=== PATIENT | female | born 1985 | race Caucasian/White ===

== ENCOUNTER → 2019-11-22 09:56 | Outpatient (BNVA) | payer OTHER, SELFPAY | PROVIDERS: Family Provider Nurse Practitioner; Visit Provider Registered Nurse | DX: G47.33 Obstructive sleep apnea (adult) (pediatric) (principal); M79.7 Fibromyalgia; G60.9 Hereditary and idiopathic neuropathy, unspecified | CPT/HCPCS: 85651; 86140 ==

== ENCOUNTER → 2019-11-29 08:50 | Outpatient (BNVA) | payer OTHER, SELFPAY | PROVIDERS: Family Provider Nurse Practitioner; Visit Provider Registered Nurse | DX: G60.9 Hereditary and idiopathic neuropathy, unspecified (principal) | CPT/HCPCS: 80053; 85025; 86431 ==

== ENCOUNTER → 2020-09-09 08:19 | Outpatient (BNVA) | payer OTHER, SELFPAY | PROVIDERS: Family Provider Nurse Practitioner; Visit Provider Obstetrics & Gynecology | DX: Z12.4 Encounter for screening for malignant neoplasm of cervix (principal); N89.8 Other specified noninflammatory disorders of vagina; N91.2 Amenorrhea, unspecified; N93.8 Other specified abnormal uterine and vaginal bleeding | CPT/HCPCS: 82670; 83001; 84146; 84443; 87210; 88175 ==

== ENCOUNTER → 2020-09-11 14:15 | Outpatient (BNVA) | payer OTHER, SELFPAY | PROVIDERS: Family Provider Nurse Practitioner; Visit Provider Obstetrics & Gynecology | DX: R79.89 Other specified abnormal findings of blood chemistry (principal) | CPT/HCPCS: 81025 ==

== ENCOUNTER 2020-12-16 07:59 | Outpatient (CLI) | payer OTHER, SELFPAY ==
--- NOTE | 2020-12-16 08:07 | MR_ITS ---
WS: [id number] MRI HEAD WITH CONTRAST WITH ATTENTION TO THE PITUITARY TECHNIQUE: Sagittal T1, T2 axial, T2 axial FLAIR, axial susceptibility weighted imaging, axial diffus ion weighted images, and coronal T2 images were obtained. Pre and post-T1 axial and post T1 coronal i mages. ADC and FSPGR images. Pituitary protocol. CLINICAL INFORMATION: G60.9 - Hereditary and idiopathic neuropathy, unspecified COMPARISON: None. FINDINGS: No evidence of restricted diffusion to suggest acute ischemia. Ventricular system and basal cisterns are patent. No suspicious intracranial signal abnormalities. Normal posterior fossa. Normal vascular flow voids at the skull base. No extra-axial fluid collections. No evidence of mass or mass effect. M astoid air cells are well aerated. Retention cyst right maxillary sinus. No hemosiderin on susceptibl y weighted images. Normal optic chiasm and pituitary infundibulum. 2 mm T1 hyperintense lesion along the tuber cinereum. Differential considerations include hypothalamic lipoma versus Ectopic posterior pituitary bright sp ot. Intrasellar contents are normal. Hypoenhancing pituitary tissue in the left posterior aspect of t he sella measuring 1.1 x 0.6 cm. Recommend correlation for microadenoma. Recommend correlation with p ituitary function studies. Incidental slightly low-lying cerebellar tonsils. Normal upper cervical spine. No abnormal intraparen chymal enhancement. MR/MR pituitary wo/w con* [id number] IMPRESSION: 1. Lobulated hypoenhancing pituitary lesion in the left posterior aspect of th e sella measuring 1.1 x 0.6 cm compatible with pituitary microadenoma. This abu ts the left cavernous carotid artery. 2. Tiny hypothalamic lipoma or Congenital ectopic posterior pituitary bright s pot along the tuber cinereum. If ectopic posterior pituitary, this can be assoc iated with growth hormone deficiency or panhypopituitarism. 3. Otherwise normal optic chiasm and pituitary infundibulum. 4. No restricted diffusion to suggest acute ischemia. 5. No suspicious intracranial signal abnormalities. 6. Incidental slightly low-lying cerebellar tonsils. Normal fourth ventricle.
[2020-12-16] MEDS: gadobenate dimeglumine 20 mL vial IV (08:52)
== END 2020-12-16 08:00 | disposition home or self-care (01) ==
PROVIDERS: PCP Registered Nurse; Visit Provider Obstetrics & Gynecology
DX: G60.9 Hereditary and idiopathic neuropathy, unspecified (principal); E23.6 Other disorders of pituitary gland
CPT/HCPCS: 70553; A9577

== ENCOUNTER → 2021-01-08 15:39 | Outpatient (BNVA) | payer OTHER, SELFPAY | PROVIDERS: Referring Provider Obstetrics & Gynecology; Visit Provider Internal Medicine | DX: D35.2 Benign neoplasm of pituitary gland (principal) | CPT/HCPCS: 99204 ==

== ENCOUNTER → 2021-01-17 08:24 | Outpatient (BNVA) | payer OTHER, SELFPAY | PROVIDERS: Visit Provider Internal Medicine | DX: D35.2 Benign neoplasm of pituitary gland (principal) | CPT/HCPCS: 82530; 82533; 82570; 84146; 84439 ==

== ENCOUNTER 2021-06-20 12:49 | Outpatient (CLI) | payer OTHER, SELFPAY ==
--- NOTE | 2021-06-20 12:54 | MR_ITS ---
WS: [id number] MRI BRAIN WITHOUT CONTRAST, ATTENTION DIRECTED TO THE PITUITARY GLAND HISTORY: Follow-up pituitary lesion. COMPARISON: 12/16/2020 TECHNIQUE: Multiple sequences without contrast performed. High-resolution coronal and sagittal imagin g performed through the pituitary region with and without intravenous gadolinium. Pituitary lesion is not as well visualized today without IV contrast. Isointense nodule within the LE FT sella causing very mild bulging of the contour of the pituitary. Superior inferior dimension of 5. 8 cm. This nodule does abut the LEFT cavernous carotid artery. Probably not significantly changed all owing IV contrast. There is no deviation of the infundibulum or optic chiasm. T1 hyperintense 2 mm lesion along the tuber cinereum is reidentified without increase in size. No diffusion-weighted abnormalities. Tellez-white matter differentiation is normal. No edema or infarct . No inferior displacement of the cerebellar tonsils other than the mild cerebellar ectopia which was previously described. No hydrocephalus. MR/MR pituitary wo con [id number] IMPRESSION: 1. Stable LEFT posterior pituitary lesion since 12/16/2020. Please note this st udy was a noncontrast examination which makes direct comparison difficult but t here is no obvious change. 2. Stable T1 bright 2 mm lesion, differential includes hypothalamic lipoma and ectopic pituitary bright spot.
== END 2021-06-20 12:50 | disposition home or self-care (01) ==
LOC: RADSHAW 12:53
PROVIDERS: PCP Registered Nurse; Visit Provider Internal Medicine
DX: D35.2 Benign neoplasm of pituitary gland (principal)
CPT/HCPCS: 70551

== ENCOUNTER 2021-06-25 12:02 | Outpatient (CLI) | payer OTHER, SELFPAY ==
[2021-06-25 12:45] LABS: Cortisol Random 6.13 ug/dL (2.47-19.5)
== END 2021-06-25 12:03 | disposition home or self-care (01) ==
LOC: LAB 12:06
PROVIDERS: PCP Registered Nurse; Visit Provider Internal Medicine
DX: D35.2 Benign neoplasm of pituitary gland (principal)
CPT/HCPCS: 82533; 84146

== ENCOUNTER → 2021-11-13 09:26 | Outpatient (BNVA) | payer OTHER, SELFPAY | PROVIDERS: PCP Registered Nurse; Visit Provider Family Medicine | DX: Z20.828 Contact with and (suspected) exposure to other viral communicable diseases (principal) | CPT/HCPCS: 87635 ==

== ENCOUNTER 2021-11-20 11:53 | Outpatient (CLI) | payer OTHER, SELFPAY ==
[2021-11-20 12:39] LABS: Prolactin 26.14 ng/mL (4.8-23.3)
== END 2021-11-20 11:54 | disposition home or self-care (01) ==
PROVIDERS: PCP Registered Nurse; Visit Provider Internal Medicine
DX: D35.2 Benign neoplasm of pituitary gland (principal)
CPT/HCPCS: 84146

== ENCOUNTER 2022-01-31 16:42 | Emergency (ER) | payer OTHER, SELFPAY ==
[2022-01-31 16:47] VITALS: BP 141/82; PULSE 89; RESP 18; TEMP 36.7; O2SAT 97; BMI 32.5
--- NOTE | 2022-01-31 16:55 | ED_ITS ---
HPI - General Adult General: Chief complaint: Needlestick/Injury/Exposure Stated complaint: Needle Stick Time Seen by Provider: 01/31/22 16:52 History of Present Illness: Patient has needlestick to the right thigh. Patient was just done and IV/blood work on the patient here in the ER and needle dropped and grazed her right thigh. Patient declines any medication. Review of Systems Narrative: Needlestick [facility] work comp Skin/Breast: Reports: other (Needlestick right thigh.) PFSH ED PFSH: Medical History Anxiety Bronchitis Depression Idiopathic polyneuropathy Pharyngitis Prolactinoma 09/09/20: Presented with amenorrhea. Prolactin 92 with TSH 0.90 12/16/20: Pituitary MRI showed 1.1 cm pituitary mass (c/w microadenoma). 12/18/20: started cabergoline Sleep apnea Uses C-pap Surgical History No pertinent past surgical history Family History Grandfather Diabetes paternal Father Hypertension Social History Smoking and tobacco status: current every day smoker cigarettes Packs smoked per day: 0.5 Years cigarettes smoked: 20 Alcohol intake: current Alcohol intake frequency: holidays/special occasions only Physical Exam Const: COMMON NORMALS: no acute distress Course Vital Signs: Vital signs: Vital Signs Temperature 98.0 F 01/31/22 16:47 Pulse Rate 89 01/31/22 16:47 Respiratory Rate 18 01/31/22 16:47 Blood Pressure 141/82 01/31/22 16:47 Pulse Oximetry 97 01/31/22 16:47 MDM - General Adult Medical Decision Making Patient has needlestick injury to right thigh. Patient declines follow-up medications. Laboratory studies were done. Discharge Plan Discharge Condition: Stable Prescriptions: No Action cabergoline 0.5 mg tablet 0.25 mg PO .Twice a week Qty: 4 12RF Referrals: Maxine Gilliam FNP [Primary Care Provider] - Coding Level of Care Code ED Deaf And Hard Of Hearing Teacher for Madie Billings
[2022-01-31 18:05] LABS: Basophils # 0.1 10^3/uL (0.0-0.1); Basophils % 0.8 %; Eosinophils # 0.6 10^3/uL (0.0-0.8); Eosinophils % 4.5 %; Hematocrit 40.1 % (37.0-47.0); Lymphocytes # 3.2 10^3/uL (0.8-4.8); Lymphocytes % 25.9 %; Mean Corpuscular HGB Conc 32.4 g/dL (30.0-36.0); Mean Corpuscular Hemoglobin 29.1 pg (28.0-34.0); Mean Corpuscular Volume 89.7 fl (81-99); Monocytes # 0.7 10^3/uL (0.2-0.9); Monocytes % 5.6 %; Neutrophils # 7.78 10^3/uL (1.8-7.7); Neutrophils % 62.7 %; Nucleated Red Blood Cells % 0 %; Platelet Count 378 10^3/cmm (130-400); Red Blood Count 4.47 10^6/uL (4.1-5.3); Red Cell Distribution Width 13.6 % (12.1-15.1); White Blood Count 12.4 10^3/uL (4.0-10.0)
[2022-01-31 18:09] LABS: Alanine Aminotransferase 12 U/L (0-33); Albumin Level 4.3 g/dL (3.5-5.2); Alkaline Phosphatase 87 IU/L (35-105); Anion Gap 16.8 (5-19); Aspartate Amino Transferase 14 U/L (0-32); Blood Urea Nitrogen 12 mg/dL (6-20); Calcium 9.8 mg/dL (8.5-10.5); Carbon Dioxide 23 mmol/L (22-29); Chloride 100 mmol/L (98-107); Globulin 2.9 g/dL (1.3-4.6); Glomerular Filtration Rate 81.6 mL/min (90-130); Glucose 96 mg/dL (65-115); Osmolality Calculated 282 mOsm/kg (285-295); Potassium 3.8 mmol/L (3.5-5.1); Sodium 136 mmol/L (136-145); Total Bilirubin 0.6 mg/dL (0.15-1.2); Total Protein 7.2 g/dL (6.6-8.7)
[2022-01-31 18:14] LABS: Hepatitis B Surface Antigen Non-Reactive (Nonreactive)
[2022-01-31 18:25] LABS: HIV 1 & 2 Antibody Non-Reactive (Non-Reactiv); HIV 1 & 2 Antigen Non-Reactive (Non-Reactiv)
[2022-01-31 19:55] LABS: Hepatitis B Core IgM Non-Reactive (Nonreactive); Hepatitis C Virus Antibody Non-Reactive (Nonreactive)
== END 2022-01-31 17:35 | disposition home or self-care (01) ==
LOC: ER 17:08
PROVIDERS: Nurse Practitioner Family; Emergency Provider Family Medicine; PCP Registered Nurse
DX: S71.141A Puncture wound with foreign body, right thigh, initial encounter (principal); W46.0XXA Contact with hypodermic needle, initial encounter; F17.210 Nicotine dependence, cigarettes, uncomplicated
CPT/HCPCS: 80053; 80074; 85025; 87806; 99283

== ENCOUNTER 2022-06-01 14:10 | Outpatient (CLI) | payer OTHER, SELFPAY ==
--- NOTE | 2022-06-01 14:30 | MR_ITS ---
WS: [id number] MRI HEAD WITHOUT AND WITH CONTRAST WITH PITUITARY PROTOCOL. TECHNIQUE: Sagittal T1, T2 axial, T2 axial FLAIR, axial susceptibility weighted imaging, axial diffus ion weighted images, and coronal T2 images were obtained. Pre and post-T1 axial and post T1 coronal i mages. ADC and FSPGR images. High-resolution pituitary protocol with dynamic high-resolution contrast examination CLINICAL INFORMATION: Check for changes. with pituitary protocol COMPARISON: FINDINGS: Hypoenhancing pituitary microadenoma unchanged since the prior examinations. This is better demonstrated today on the dynamic pituitary protocol measuring 6.0 x 3.5 x 3.[address] sm and pituitary infundibulum. Stable tiny hypothalamic lipoma or congenital ectopic posterior pituit sarah bright spot is unchanged. No evidence of restricted diffusion to suggest acute ischemia. Ventricular system and basal cisterns are patent. Normal posterior fossa. Normal vascular flow voids at the skull base. No extra axial flui d collections. No evidence of mass or mass effect. Mild mucosal thickening in the paranasal sinuses. Mastoid air cells well aerated. Retention cyst RIGHT maxillary sinus measuring 2.7 x 1.8 cm. No hemos iderin on susceptibly weighted images. Normal cavernous sinuses and Meckel's cave. Stable cerebellar tonsillar ectopia. MR/MR pituitary wo/w con* [id number] IMPRESSION: 1. Stable hypoenhancing pituitary lesion in the LEFT posterior aspect of the p ituitary better delineated today on the dynamic protocol measuring 6 x 3.5 x 3. 5 mm compatible with microadenoma unchanged compared to prior examinations. 2. Stable tiny hypothalamic lipoma or congenital ectopic posterior pituitary b right spot unchanged. 3. No other significant changes compared to prior examinations. 4. No other suspicious intracranial signal abnormalities.
== END 2022-06-01 14:11 | disposition home or self-care (01) ==
PROVIDERS: PCP Registered Nurse; Visit Provider Internal Medicine
DX: D35.2 Benign neoplasm of pituitary gland (principal)
CPT/HCPCS: 70553; A9577

== ENCOUNTER 2022-07-13 13:57 | Outpatient (CLI) | payer OTHER, SELFPAY ==
[2022-07-13 14:51] LABS: Prolactin 23.48 ng/mL (4.8-23.3)
[2022-07-19 13:43] LABS: IGF1 LC/MS 154 ng/mL (53-331); Z Score (Female) 0.2 SD (-2.0 - +2.0)
== END 2022-07-13 13:58 | disposition home or self-care (01) ==
LOC: LAB 14:00
PROVIDERS: PCP Registered Nurse; Visit Provider Internal Medicine
DX: D35.2 Benign neoplasm of pituitary gland (principal)
CPT/HCPCS: 36415; 84146; 84305

== ENCOUNTER → 2022-10-20 16:00 | Outpatient (BNVA) | payer OTHER, SELFPAY | PROVIDERS: PCP Registered Nurse; Visit Provider Internal Medicine | DX: D35.2 Benign neoplasm of pituitary gland (principal) | CPT/HCPCS: 36415; 84146 ==

== ENCOUNTER 2023-01-26 10:09 | Outpatient (CLI) | payer OTHER, SELFPAY ==
[2023-01-26 11:04] LABS: Prolactin 8.32 ng/mL (4.8-23.3)
== END 2023-01-26 10:10 | disposition home or self-care (01) ==
LOC: LAB 10:13
PROVIDERS: PCP Registered Nurse; Visit Provider Internal Medicine
DX: D35.2 Benign neoplasm of pituitary gland (principal)
CPT/HCPCS: 36415; 84146

== ENCOUNTER → 2023-06-21 12:15 | Outpatient (BNVA) | payer OTHER, SELFPAY | PROVIDERS: PCP Registered Nurse; Visit Provider Emergency Medicine | DX: R30.0 Dysuria (principal); N10 Acute pyelonephritis | CPT/HCPCS: 81000 ==

== ENCOUNTER → 2023-12-15 09:10 | Outpatient (BNVA) | payer OTHER, SELFPAY | PROVIDERS: PCP Registered Nurse; Visit Provider Family Medicine | DX: D35.2 Benign neoplasm of pituitary gland (principal) | CPT/HCPCS: 80053; 84146; 84439; 84443; 85025 ==

== ENCOUNTER → 2024-03-02 08:10 | Outpatient (BNVA) | payer OTHER, SELFPAY | PROVIDERS: PCP Family Medicine; Visit Provider Family Medicine | DX: D35.2 Benign neoplasm of pituitary gland (principal); F41.9 Anxiety disorder, unspecified; F17.200 Nicotine dependence, unspecified, uncomplicated; Z71.6 Tobacco abuse counseling; G47.30 Sleep apnea, unspecified; F10.90 Alcohol use, unspecified, uncomplicated | CPT/HCPCS: 84146 ==

== ENCOUNTER 2025-06-11 15:17 | Observation (INO) | payer OTHER, SELFPAY ==
[2025-06-11] VITALS (23 sets, daily range): BP systolic 124–159; BP diastolic 76–108; PULSE 67–90; RESP 15; TEMP 36.6–36.9; O2SAT 94–100; BMI 36.7
--- OUTSIDE RECORDS SUMMARY | 2025-06-11 15:22 | XMS_ITS | Clinical Summary ---
Author Organization [facility] Address [address] [place] [address] Care Team Providers Care Laboratory Geneticist Name Role Phone Therese Frye [facility] Primary Care Provi dalia Allergies No known active allergies Medications medroxyPROGESTE Nancy Mcdonald, (DEPO-PROVERA) 150 mg/mL SyringeIndicati ons:URI (upper respiratory infection) Inject 150 mg by intramuscular injection one time only. Active Active Problems No known active problems Social History Tobacco Use Types Packs/Day Years Used Date Smoking Tobacco: Former Cigarettes Smokeless Tobacco: Never Comments:since age 16 Alcohol Use Standard Drinks/Week Comments No 0 (1 standard drink = 0.6 oz pur e alcohol) rarely Comments No Sex and Gender Information Value Date Recorded Sex Assigned at Not on file Legal Sex Female 4:21 AM COPYMAN Gender Identity Not on file Sexual Orientation Not on file Last Filed Vital Signs Vital Sign Reading Time Taken Comments Blood Pressure 104/88 03/15/2015 11:20 AM CDT Pulse 68 05/22/2014 11:19 AM CDT Temperature 36.9 C (98.5 F) 03/15/2015 9:38 AM CDT Respiratory Rate 20 03/15/2015 11:20 AM CDT Oxygen Saturation 97% 03/15/2015 11:20 AM CDT Inhaled Oxygen Concentration - - Weight 81.6 kg (180 lb) 03/15/2015 9:38 AM CDT Height 160 cm (5' 3 ) 03/15/2015 9:38 AM CDT Body Mass Index 31.89 03/15/2015 9:38 AM CDT Plan of Treatment Health Maintenance Due Date Last Done Comments DTAP/TDAP/TD VACCINES (1 - Tdap) 2005 HEPATITIS B VACCINES (1 of 3 - 19+ 3-dose series) 05/04 HPV/Cotest (21-29) 2007 HPV VACCINES (1 - 3-dose SCDM series) 2013 CERVICAL CANCER SCREENING 2016 HPV/Cotest (30-65) 2016 PAP SMEAR 2016 11/15/2009 INFLUENZA VACCINE (#1) 2025 Procedures Procedure Name Priority Date/Time Associated Diagnosis Comments CERV/VAG CYTOPATH, THIN PREP DRUG DEPARTMENT WORKER Routine 11/15/2009 from Last 3 Months or Most Recently Relevant to Health Maintenance Results * CERV/VAG CYTOPATH, THIN PREP DRUG DEPARTMENT WORKER (11/15/2009) Endocervical us Rebecca Reynolds MD PATHOLOGY/CYTOLOGY ORDERABL ES Final Result Performing Organization Address City/State/[facility] Co de Phone Number [facility] CLIA# [id number] [address] [place] [address] from Last 3 Months or Most Recently Relevant to Health Maintenance Insurance [facility] INSURANCE [facility] Care Teams Laboratory Geneticist Relationship Specialty Start Date End Date Therese Frye FNP PCP - General NURSE PRACTITIONER 01/29/14
--- OUTSIDE RECORDS SUMMARY | 2025-06-11 15:22 | XMS_ITS | Encounter Summary ---
Author Organization [facility] Address [address] [place] [address] Care Team Providers Care Motor Coach Chauffeur Name Role Phone Therese Frye Primary Care Provi dalia Encounter Details Date Type Department Care Team (Latest Contact Info) Description 02/15/2002 Outpatient Historical [facility]- [address] [place] [address] Rebecca Reynolds MD NO ADDRESS ON FILE ACUTE SINUSITIS NOS (Primary Dx); JOINT PAIN-ANKLE Social History Tobacco Use Types Packs/Day Years Used Date Smoking Tobacco: Never Assessed Comments Unknown Sex and Gender Information Value Date Recorded Sex Assigned at Not on file Legal Sex Female 4:21 AM MANDARIN CHINESE TEACHER Gender Identity Not on file Sexual Orientation Not on file documented as of this encounter Plan of Treatment Not on file documented as of this encounter Visit Diagnoses Diagnosis Acute sinusitis, unspecified- Primary Pain in joint, ankle and foot documented in this encounter Care Teams Motor Coach Chauffeur Relationship Specialty Start Date End Date Therese Frye FNP PCP - General NURSE PRACTITIONER 01/29/14 documented as of this encounter
--- OUTSIDE RECORDS SUMMARY | 2025-06-11 15:22 | XMS_ITS | Encounter Summary ---
Author Organization [facility] Address [address] [place] [address] Care Team Providers Care Delivery Supervisor Name Role Phone Therese Frye NAVAL INSPECTOR Primary Care Provi dalia Encounter Details Date Type Department Care Team (Late st Contact Info) Description 01/29/2014 Ancillary Orders [facility] Admitting [address] [place] [address] Therese Frye FNP [address] [place] [address] Wrist pain, right (Primary Dx) Social History Tobacco Use Types Packs/Day Years Used Date Smoking Tobacco: Every Day Cigarettes Comments:since age 16 Alcohol Use Standard Drinks/Week Comments Not Asked 0 (1 standard drink = 0.6 oz pur e alcohol) rarely Comments No Sex and Gender Information Value Date Recorded Sex Assigned at Not on file Legal Sex Female 4:21 AM DIRECTOR CORPORATE Gender Identity Not on file Sexual Orientation Not on file documented as of this encounter Plan of Treatment Not on file documented as of this encounter Results * XR WRIST 3+ VW RIGHT (01/29/2014 2:21 PM CDT) Anatomical Region Laterality Modality Wrist / Hand Computed Radiogr aphy 01/29/2014 2:18 PM CDT Narrative 01/29/2014 5:17 PM CDT PROCEDURE XR RIGHT WRIST, three views 29 January 2014 DESCRIPTION PA, oblique, and lateral views of the right wrist show no acute fracture, dislocation, or deformity. IMPRESSION normal right wrist views Procedure Note Manny Chavira MD - 01/29/2014 PROCEDURE XR RIGHT WRIST, three views 29 January 2014 DESCRIPTION PA, oblique, and lateral views of the right wrist show no acute fracture, dislocation, or deformity. IMPRESSION normal right wrist views us Therese [facility] ORDERABLES Final Result documented in this encounter Visit Diagnoses Diagnosis Wrist pain, right Pain in joint, forearm Wrist pain, right- Primary Pain in joint, forearm documented in this encounter Care Teams Delivery Supervisor Relationship Specialty Start Date End Date Therese Frye FNP PCP - General NURSE PRACTITIONER 01/29/14 documented as of this encounter
--- OUTSIDE RECORDS SUMMARY | 2025-06-11 15:22 | XMS_ITS | Encounter Summary ---
Author Organization [facility] Address [address] [place] [address] Care Team Providers Care Garnett Mechanic Name Role Phone Therese Frye Primary Care Provi dalia Encounter Details Date Type Department Care Team (Late st Contact Info) Description 01/29/2014 Ancillary Orders [facility] Admitting [address] [place] [address] Therese Frye FNP [address] [place] [address] Wrist pain, right (Primary Dx) Social History Tobacco Use Types Packs/Day Years Used Date Smoking Tobacco: Every Day Cigarettes Comments:since age 16 Alcohol Use Standard Drinks/Week Comments Not Asked 0 (1 standard drink = 0.6 oz pur e alcohol) rarely Comments No Sex and Gender Information Value Date Recorded Sex Assigned at Not on file Legal Sex Female 4:21 AM MANAGER TRANSIT Gender Identity Not on file Sexual Orientation Not on file documented as of this encounter Plan of Treatment Not on file documented as of this encounter Visit Diagnoses Diagnosis Wrist pain, right- Primary Pain in joint, forearm documented in this encounter Care Teams Garnett Mechanic Relationship Specialty Start Date End Date Therese Frye FNP PCP - General NURSE PRACTITIONER 01/29/14 documented as of this encounter
--- OUTSIDE RECORDS SUMMARY | 2025-06-11 15:22 | XMS_ITS | Clinical Summary ---
Author Organization [facility] Address [address] Yun: Epic Prelude ADT [place] [address] Care Team Providers Care Nuclear Equipment Research Engineer Name Role Phone Therese Frye [facility] Primary Care Provi dalia Allergies No known active allergies Social History Tobacco Use Types Packs/Day Years Used Date Smoking Tobacco: Former Cigarettes Smokeless Tobacco: Never Comments:Quit smoking: since age 16 Alcohol Use Standard Drinks/Week Comments No 0 (1 standard drink = 0.6 oz pur e alcohol) Comments Unknown Sex and Gender Information Value Date Recorded Sex Assigned at Not on file Legal Sex Female 1:25 PM FREELANCE PROGRAMMER/APP DEVELOPER Gender Identity Not on file Sexual Orientation Not on file Last Filed Vital Signs Vital Sign Reading Time Taken Comments Blood Pressure 104/88 03/15/2015 11:20 AM CDT Pulse - - Temperature 36.9 C (98.5 F) 03/15/2015 9:38 AM CDT Respiratory Rate 20 03/15/2015 11:20 AM CDT Oxygen Saturation - - Inhaled Oxygen Concentration - - Weight 81.6 [...] 2016 HPV/Cotest (30-65) 2016 PAP SMEAR 2016 INFLUENZA VACCINE (#1) 2025 Care Teams Nuclear Equipment Research Engineer Relationship Specialty Start Date End Date Therese Frye FNP [address] [place] [address] PCP - General NURSE PRACTITIONER 01/29/14
--- OUTSIDE RECORDS SUMMARY | 2025-06-11 15:22 | XMS_ITS | Encounter Summary ---
Author Organization [facility] Address [address] [place] [address] Care Team Providers Care Contract Driver Name Role Phone Therese Frye Primary Care Provi dalia Encounter Details Date Type Department Care Team (Latest Contact Info) Description 02/24/[address] [facility] Family Medicine- [address] [place] [address] Rebecca Reynolds MD NO ADDRESS ON FILE SPRAIN OF ANKLE NOS (Primary Dx) Social History Tobacco Use Types Packs/Day Years Used Date Smoking Tobacco: Never Assessed Comments Unknown Sex and Gender Information Value Date Recorded Sex Assigned at Not on file Legal Sex Female 4:21 AM HEALTHCARE ADMINISTRATIVE ASSISTANT Gender Identity Not on file Sexual Orientation Not on file documented as of this encounter Plan of Treatment Not on file documented as of this encounter Visit Diagnoses Diagnosis Sprain of ankle, unspecified site- Primary documented in this encounter Care Teams Contract Driver Relationship Specialty Start Date End Date Therese Frye FNP PCP - General NURSE PRACTITIONER 01/29/14 documented as of this encounter
--- OUTSIDE RECORDS SUMMARY | 2025-06-11 15:22 | XMS_ITS | Encounter Summary ---
Author Organization [facility] Address [address] [place] [address] Care Team Providers Care Equipment Inspector Name Role Phone Therese Frye Primary Care Provi dalia Encounter Details Date Type Department Care Team (Latest Contact Info) Description 08/06/1999 Outpatient Historical [facility] Kimmie Cristina MD [address] [place] [id number] Oral aphthae (Primary Dx) Social History Tobacco Use Types Packs/Day Years Used Date Smoking Tobacco: Never Assessed Comments Unknown Sex and Gender Information Value Date Recorded Sex Assigned at Not on file Legal Sex Female 4:21 AM LOSS PREVENTION SPECIALIST Gender Identity Not on file Sexual Orientation Not on file documented as of this encounter Plan of Treatment Not on file documented as of this encounter Visit Diagnoses Diagnosis Oral aphthae- Primary documented in this encounter Care Teams Equipment Inspector Relationship Specialty Start Date End Date Therese Frye FNP PCP - General NURSE PRACTITIONER 01/29/14 documented as of this encounter
--- NOTE | 2025-06-11 15:25 | CTR_ITS ---
PROCEDURE INFORMATION: Exam: CT Head Without Contrast Exam date and time: 06/11/2025 3:29 PM Age: 40 years old Clinical indication: Stroke-like symptoms; Dizziness/giddiness; Right upper extremity numbness/paresthesia; Additional info: Symptoms of acute stroke TECHNIQUE: Imaging protocol: Computed tomography of the head without contrast. Radiation optimization: All CT scans at this facility use at least one of these dose optimization techniques: automated exposure control; mA and/or kV adjustment per patient size (includes targeted exams where dose is matched to clinical indication); or iterative reconstruction. Other technique: STROKE PROTOCOL was implemented. COMPARISON: MR pituitary wo/w con* [id number] 06/01/2022 2:29 PM RADIATION DOSE METRICS: Total DLP (mGy-cm): 1041.98 FINDINGS: Brain: No midline shift. Ventricles, cisterns, and sulci are normal. No mass, acute infarct, hemorrhage, or extraaxial fluid collection. Cerebral ventricles: No ventriculomegaly. Paranasal sinuses: Visualized sinuses are unremarkable. No fluid levels. Mastoid air cells: Visualized mastoid air cells are well aerated. Bones: Unremarkable. No acute fracture. Soft tissues: Unremarkable. CT/CT head thrombolytic [id number] IMPRESSION: No acute intracranial abnormality. ASSESSMENT: ASPECTS ([place] Stroke Program Early CT Score) is 10.
--- NOTE | 2025-06-11 15:39 | W.ED.NEUROSD ---
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 She says she suddenly developed an aura or of blurriness of her vision in her right eye in the periphery to the right. She also has numbness down the side of her face. She can feel touch but she says it feels numb and tingly. Also in her right arm. She has no motor deficits and no strength deficits. No facial droop. No slurred speech. No headache. No history of migraines or other types of headaches. She says her blood pressure was elevated when they had her check in the ICU and she says it is not normally elevated at all. No fever. No cough. No chest pain. No abdominal pain. Related Data Previous Rx's ?Medication ?Instructions ?Recorded cabergoline 0.5 mg tablet 0.25 mg (1/2 x 0.5 mg) PO .Twice a 12/15/23 week #26 tabs doxycycline hyclate 100 mg tablet 100 mg PO BID #14 tabs 08/08/24 promethazine-DM 6.25 mg-15 mg/5 mL 5 ml PO Q6H PRN cough #118 mL 08/08/24 oral syrup fluoxetine 20 mg tablet 20 mg PO DAILY #90 tabs 08/10/24 Allergies Allergy/AdvReac Type Severity Reaction Status Date / Time No Known Allergies Allergy Verified 06/11/25 15:30 Review of Systems Narrative: Constitutional symptoms: Negative except as documented in HPI. Skin symptoms: Negative except as documented in HPI. Eye symptoms: Negative except as documented in HPI. ENMT symptoms: Negative except as documented in HPI. Respiratory symptoms: Negative except as documented in HPI. Cardiovascular symptoms: Negative except as documented in HPI. Gastrointestinal symptoms: Negative except as documented in HPI. Genitourinary symptoms: Negative except as documented in HPI. Musculoskeletal symptoms: Negative except as documented in HPI. Neurologic symptoms: Negative except as documented in HPI. Psychiatric symptoms: Negative except as documented in HPI. Endocrine symptoms: Negative except as documented in HPI. PFS ED PFSH: Medical History (Updated 06/11/25 @ 18:12 by Dinorah Corey MD) Alcohol use disorder Tobacco use disorder Prolactinoma 09/09/20: Presented with amenorrhea. Prolactin 92 with TSH 0.90 12/16/20: Pituitary MRI showed 1.1 cm pituitary mass (c/w microadenoma). 12/18/20: started cabergoline Bronchitis Pharyngitis Anxiety Sleep apnea Uses C-pap Depression Idiopathic polyneuropathy Surgical History No pertinent past surgical history Family History Grandfather Diabetes paternal Father Hypertension Social History Smoking and tobacco/nicotine status: current every day tobacco/nicotine user e-cigarettes E-Cigarette Details: with nicotine Alcohol intake: current Alcohol intake frequency: 3 or more drinks per day Substance/Drug Use: never Adopted: No Caregiver/support person: No Lives independently: No Household members: spouse Marital status: service: No Current occupational status: employed Sexually active: Yes Do you think of yourself as: Straight/Heterosexual Current gender identity: Female Female Reproductive History: Para: 2 Physical Exam Narrative: EXAM NARRATIVE: General: Alert, no acute distress. Skin: Warm, dry. Head: Normocephalic, atraumatic. Neck: Supple, trachea midline. Eye: Extraocular movements are intact. Ears, nose, mouth and throat: mucosa moist. Cardiovascular: Regular, Normal peripheral perfusion. Respiratory: Lungs are clear to auscultation, respirations are non-labored, breath sounds are equal, Symmetrical chest wall expansion. Gastrointestinal: Soft, Nontender, Non distended Musculoskeletal: Normal ROM, no deformity. Neurological: Alert and oriented, No focal motor deficit observed. She says she feels tingly and numb over her right face and right arm but she does not have any sensory deficit. No facial droop. She reports a blurriness of her right periphery. Psychiatric: Cooperative, appropriate mood & affect. Course Vital Signs: Vital signs: Vital Signs Temperature 97.9 F 06/11/25 15:25 Pulse Rate 70 06/11/25 18:00 Respiratory Rate 15 06/11/25 15:30 Blood Pressure 145/99 06/11/25 18:00 Pulse Oximetry 97 06/11/25 18:00 Oxygen Delivery Me thod Room Air 06/11/25 18:00 MDM - Neuro Symptoms/Deficit Medical Decision Making Medical decision making: Differential diagnosis for patient with focal neurologic deficit(s) includes but not limited to and based on the above HPI, review of systems and physical exam: ischemic stroke, hemorrhagic stroke and embolic stroke secondary to atrial fibrillation), TIA, Monteiro's palsey, metabolic encephalopathy with previous stroke. 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 1520: Patient check and in triage. 1530: Stroke was called from triage 1532 I examined the patient in the CT scanner [address] Cadet on the phone about the patient and she is coming to see her. 1540 NIH Stroke Scale/Score (NIHSS) from [employer] on 06/11/2025 All calculations should be rechecked by clinician prior to use RESULT SUMMARY: 2 points NIH Stroke Scale Still using NIHSS for all strokes? Don't miss a posterior one without HINTS! INPUTS: 1A: Level of consciousness ?> 0 = Alert; keenly responsive 1B: Ask month and age ?> 0 = Both questions right 1C: 'Blink eyes' & 'squeeze hands' ?> 0 = Performs both tasks 2: Horizontal extraocular movements ?> 0 = Normal 3: Visual waldron ?> 1 = Partial hemianopia 4: Facial palsy ?> 0 = Normal symmetry 5A: Left arm motor drift ?> 0 = No drift for 10 seconds 5B: Right arm motor drift ?> 0 = No drift for 10 seconds 6A: Left leg motor drift ?> 0 = No drift for 5 seconds 6B: Right leg motor drift ?> 0 = No drift for 5 seconds 7: Limb Ataxia ?> 0 = No ataxia 8: Sensation ?> 1 = Mild-moderate loss: less sharp/more dull 9: Language/aphasia ?> 0 = Normal; no aphasia 10: Dysarthria ?> 0 = Normal 11: Extinction/inattention ?> 0 = No abnormality CT head: No acute intracranial process. no intracranial hemorrhage, no evidence of infarct. no evidence of acute fracture.This was reviewed and interpreted by myself the ER physician. Consultation: I spoke with Dr. Cadet who examined the patient here in the emergency room. Given the history of pituitary tumor and the odd symptoms she recommends MRI/MRA. She does not recommend TNKase at this time. Lab Review: Laboratory results were reviewed and interpreted by myself the emergency room physician. No leukocytosis, no anemia, no renal insufficiency. MRI/MRA of the brain: No acute process. This was reviewed and interpreted by myself the emergency room physician. I also reviewed the radiology report. I reviewed the patient's medical record. Reexamination: Patient has had very little change in her neurologic symptoms. Nursing staff that was in the room feel that she has a little bit more slurred speech than she had initially secondary to the paresthesia on the right side of her face. Vital signs have improved but she is still slightly hypertensive with blood pressure 145/99. No increased work of breathing. No altered mental status. Consultation: I spoke again with Dr. aCdet and we are going to try some valproic acid for possible migraine. Also, check the prolactin level with her history of pituitary adenoma. She recommends observation overnight. Consultation: I spoke Dr. Elder who is on-call for the hospital service who agrees to admission. Assessment and plan: Paresthesia/neurologic symptoms Hypertension History of pituitary adenoma ?IV Zofran and IV valproic acid in the emergency room -I discussed the patient with the hospitalist on-call who is admitting the patient. - Discussed findings and plan with patient. Answered any questions. - All laboratory values were reviewed and interpreted personally by myself, the ER physician - All imaging was reviewed and interpreted personally by myself, the ER physician. - Evaluation and treatment of this problem were appropriate in the emergency setting Lab Data 06/11/25 15:39 06/11/25 15:[address] 06/11/25 15:25 IMPRESSION: No acute intracranial abnormality. ASSESSMENT: ASPECTS ([place] Stroke Program Early CT Score) is 10. ADDENDUM: 06/11/25 1544 THIS REPORT CONTAINS FINDINGS THAT MAY BE CRITICAL TO PATIENT CARE. The findings were verbally communicated via telephone conference with DINORAH COREY at 3:42 PM CDT on 06/11/2025. The findings were acknowledged and understood. Head MRA 06/11/25 15:44 IMPRESSION: No stenosis or occlusion. Laboratory Results WBC 10.57 10^3/uL (3.29-11.43) 06/11/25 15:39 RBC 4.69 10^6/uL (3.85-5.65) 06/11/25 15:39 Hgb 13.40 g/dL (11.27-16.99) 06/11/25 15:39 Hct 41.6 % (36-47) 06/11/25 15:39 MCV 88.7 fl (85-98) 06/11/25 15:39 MCH 28.6 pg (27-33) 06/11/25 15:39 MCHC 32.2 g/dL (30-55) 06/11/25 15:39 RDW 13.5 % (12.1-15.1) 06/11/25 15:39 Plt Count 321 10^3/cmm (157-399) 06/11/25 15:39 MPV 9.9 fL (7.4-10.4) 06/11/25 15:39 Neut % (Auto) 55.7 % 06/11/25 15:39 Lymph % (Auto) 34.5 % 06/11/25 15:39 Weston % (Auto) 6.3 % 06/11/25 15:39 Eos % (Auto) 2.6 % 06/11/25 15:39 Baso % (Auto) 0.5 % 06/11/25 15:39 Neut # (Auto) 5.88 10^3/uL (1.8-7.7) 06/11/25 15:39 Lymph # (Auto) 3.7 10^3/uL (0.8-4.8) 06/11/25 15:39 Weston # (Auto) 0.7 10^3/uL (0.2-0.9) 06/11/25 15:39 Eos # (Auto) 0.3 10^3/uL (0.0-0.8) 06/11/25 15:39 Baso # (Auto) 0.1 10^3/uL (0.0-0.1) 06/11/25 15:39 Nucleated RBC % (auto) 0 % 06/11/25 15:39 Nucleated RBCs # 0.0 /100WBC 06/11/25 15:39 PT 12.90 SECONDS (12.1-14.9) 06/11/25 15:39 INR 0.91 (0.8-1.2) 06/11/25 15:39 APTT 28.5 SECONDS (23.9-36.7) 06/11/25 15:39 Sodium 135 mmol/L (136-145) L 06/11/25 15:39 Potassium 3.5 mmol/L (3.5-5.1) 06/11/25 15:39 Chloride 99 mmol/L (98-107) 06/11/25 15:39 Carbon Dioxide 25 mmol/L (22-29) 06/11/25 15:39 Anion Gap 14.5 (5-19) 06/11/25 15:39 BUN 11 mg/dL (6-20) 06/11/25 15:39 Creatinine 0.8 mg/dL (0.5-0.9) 06/11/25 15:39 GFR Calculation 79.9 mL/min (90-130) L 06/11/25 15:39 Glucose 93 mg/dL (65-115) 06/11/25 15:39 POC Glucose 90 mg/dL (70-110) 06/11/25 15:38 Calculated Osmolality 279 mOsm/kg (285-295) L 06/11/25 15:39 Calcium 9.1 mg/dL (8.5-10.5) 06/11/25 15:39 Total Bilirubin 0.9 mg/dL (0.15-1.2) 06/11/25 15:39 AST 12 U/L (0-32) 06/11/25 15:39 ALT 10 U/L (0-33) 06/11/25 15:39 Alkaline Phosphatase 93 U/L (35-105) 06/11/25 15:39 Total Protein 7.8 g/dL (6.6-8.7) 06/11/25 15:39 Albumin 4.3 g/dL (3.5-5.2) 06/11/25 15:39 Globulin 3.5 g/dL (1.3-4.6) 06/11/25 15:39 All radiology interpretation(s) finalized by discharge Discharge Plan Discharge Patient Disposition: Placed in Observation Clinical Impression: Neurological symptoms, Hypertension, Pituitary adenoma Coding Level of Care Code ED Equal Opportunity Assistant for Madie Billings
--- NOTE | 2025-06-11 15:44 | MRR_ITS ---
PROCEDURE INFORMATION: Exam: MR Head Without Contrast Exam date and time: 06/11/2025 4:45 PM Age: 40 years old Clinical indication: Numbness / parasthesia; Additional info: Stroke symptoms TECHNIQUE: Imaging protocol: Magnetic resonance imaging of the head without contrast. COMPARISON: MR angio head wo con [id number] 06/11/2025 4:36 PM FINDINGS: Brain: No abnormal signal intensity to indicate intracranial hemorrhage or hematoma. No mass effect or shift of midline structures. No restricted diffusion to indicate ischemic change or infarct. Tellez-white matter differentiation appears maintained. Major vascular flow voids appear unremarkable. Previous MRI pituitary with and without contrast report of 2021 is available for review. No images are available. Pituitary/posterior pituitary region appear unchanged based on previous report. Mild cerebellar tonsillar ectopia appears chronic with previous exam as well. Cerebral ventricles: No hydrocephalus. Bones: Unremarkable. Paranasal sinuses: Mild mucous retention cyst inferior right maxillary sinus, chronic. Remainder of the sinuses appear unremarkable. No air-fluid levels. Mastoid air cells: Normal as visualized. No mastoid effusion. Orbital cavities: Unremarkable. Soft tissues: Unremarkable. MR/MR head wo con* [id number] IMPRESSION: No acute intracranial abnormality. No restricted diffusion to indicate ischemic infarct.
--- NOTE | 2025-06-11 15:44 | MRR_ITS ---
PROCEDURE INFORMATION: Exam: MRA Head Without Contrast; Arteriography Exam date and time: 06/11/2025 4:36 PM Age: 40 years old Clinical indication: Numbness; Additional info: Stroke SX TECHNIQUE: Imaging protocol: Magnetic resonance angiography head without contrast. Apnv-hi-jgyyzi (TOF) technique was utilized for this exam. Exam focused on the arteries. COMPARISON: CT head thrombolytic [id number] 06/11/2025 3:29 PM FINDINGS: ANTERIOR CIRCULATION: Right internal carotid artery: Intracranial segment is patent with no significant stenosis. No aneurysm. Right middle cerebral artery: No occlusion or significant stenosis. No aneurysm. Right anterior cerebral artery: No occlusion or significant stenosis. No aneurysm. Atretic or hypoplastic right A1 segment. Left internal carotid artery: Intracranial segment is patent with no significant stenosis. No aneurysm. Left middle cerebral artery: No occlusion or significant stenosis. No aneurysm. Left anterior cerebral artery: No occlusion or significant stenosis. No aneurysm. POSTERIOR CIRCULATION: Right vertebral artery: No occlusion or significant stenosis. No aneurysm. Left vertebral artery: No occlusion or significant stenosis. No aneurysm. Basilar artery: No occlusion or significant stenosis. No aneurysm. Right posterior cerebral artery: No occlusion or significant stenosis. No aneurysm. Left posterior cerebral artery: No occlusion or significant stenosis. No aneurysm. MR/MR angio head wo con [id number] IMPRESSION: No stenosis or occlusion.
[2025-06-11 15:56] LABS: Hematocrit 41.6 % (36-47); Hemoglobin 13.40 g/dL (11.27-16.99); Mean Corpuscular HGB Conc 32.2 g/dL (30-55); Mean Corpuscular Hemoglobin 28.6 pg (27-33); Mean Corpuscular Volume 88.7 fl (85-98); Nucleated Red Blood Cells % 0 %; Platelet Count 321 10^3/cmm (157-399); Red Blood Count 4.69 10^6/uL (3.85-5.65); White Blood Count 10.57 10^3/uL (3.29-11.43)
--- NOTE | 2025-06-11 16:09 | ECG_ITS ---
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 Measurements Intervals [place] Rate: 77 P: 44 ME: 156 QRS: 69 QRSD: 103 T: 39 QT: 394 QTc: 447 Interpretive Statements SINUS RHYTHM LOW QRS VOLTAGE IN PRECORDIAL LEADS [QRS DEFLECTION < 1.0 mV IN CHEST LEADS] NONSPECIFIC T-WAVE ABNORMALITY No previous ECG available for comparison Electronically Signed On 06-13-2025 20:40:30 CDT by Tavon Mccray M.D. [email or web address]
[2025-06-11 16:18] LABS: INR 0.91 (0.8-1.2); Prothrombin Time 12.90 SECONDS (12.1-14.9)
[2025-06-11 16:19] LABS: Partial Thromboplastin Time 28.5 SECONDS (23.9-36.7)
[2025-06-11 16:26] LABS: Alanine Aminotransferase 10 U/L (0-33); Albumin Level 4.3 g/dL (3.5-5.2); Alkaline Phosphatase 93 U/L (35-105); Anion Gap 14.5 (5-19); Aspartate Amino Transferase 12 U/L (0-32); Blood Urea Nitrogen 11 mg/dL (6-20); Calcium 9.1 mg/dL (8.5-10.5); Carbon Dioxide 25 mmol/L (22-29); Chloride 99 mmol/L (98-107); Creatinine Clr Calc Pharmacy 105.7052; Globulin 3.5 g/dL (1.3-4.6); Glucose 93 mg/dL (65-115); Osmolality Calculated 279 mOsm/kg (285-295); Potassium 3.5 mmol/L (3.5-5.1); Sodium 135 mmol/L (136-145); Total Protein 7.8 g/dL (6.6-8.7)
--- NOTE | 2025-06-11 16:33 | PC.NURSE ---
PT taken to MRI @[id number]
--- NOTE | 2025-06-11 17:16 | P.PNCC_ITS ---
Stroke Alert Activation ED Arrival Date: 06/11/25 ED Arrival Time: 15:25 ED Physican at Bedside: 15:25 Last Known Normal/at Baseline: < 1 hour ago Other Last Known Well Infomation: A stroke alert was called in triage soon after the patient arrived with right- sided numbness and visual difficulty. She was feeling fine when she started experiencing some visual problems to the right and soon after the right side of her face felt numb followed by involvement of the right arm. She felt a little nauseated after an IV was started but she has a history of some vagal symptoms associated with needlesticks. She has had occasional headaches in the past but nothing remarkable and is not normally a migraines of her. She has never had focal neurologic symptoms prior to this. She has a known prolactinoma for which she has seen Dr. Elizabeth in the past. Stroke Alert Activated by: triage Stroke Alert Activation Time: 15:33 Stroke MD @ Bedside Time: 15:42 NIH Stroke Scale Time: 15:42 NIH stroke score NIHSS: Level Of Consciousness - 1a: 0 Level Of Consciousness Questions - 1b: Both Correct Level Of Consciousness Commands - 1c: Both Correct Best Gaze - 2: Normal Visual Cisse - 3: No Visual Loss Facial Palsy - 4: Normal Motor Arm Right - 5: No Drift Motor Arm Left - 5: No Drift Motor Leg Right - 6: No Drift Motor Leg Left - 6: No Drift Limb Ataxia - 7: Absent Sensory - 8: Mild To Moderate Loss Best Language - 9: No Aphasia Dysarthia - 10: Normal Extinction And Inattention - 11: 0 Score: Total Score: 1 Stroke Alert Data/Treatment Time to CT of Head: 15:33 CT Results Time: 15:42 CT Impression: normal Stroke Risk Factors: obesity, smoker and sleep apnea tPA Contraindication: tPA Contraindication: Treatment not indcated tPA Admin Prior to Arrival: No Critical Care Time Critical Care Time: less than 30 mins A&P Assessment and plan 1. TIA (transient ischemic attack): Healthy 40-year-old woman with no previous history of stroke or TIA who presented with unilateral numbness including the face, arm and leg, of concern for left thalamic stroke or ischemia. She was very much hypertensive on arrival suggesting a stroke in evolution. MRI with MRA is normal. Plan on starting her on 81 mg of aspirin a day. I will be glad to see her in the clinic in follow-up. 2. Pituitary adenoma: Her pituitary looks unremarkable on MRI but this was done without contrast. Probably the most sensitive way to follow on her pituitary is to recheck her prolactin and get her back on cabergoline. PDMP PDMP Reviewed: Not Reviewed Coding Level of Care Code Acute Code for Chg Fwd Diagnoses TIA (transient ischemic attack) G45.9 Pituitary adenoma D35.2
[2025-06-11] MEDS: ondansetron 2 mg/ML SDV 2 mL 4 MG IVP (17:55)
--- NOTE | 2025-06-11 20:54 | P.HP_ITS ---
Providers/Chief Complaint 2 Admitting Physician: Varghese Elder MD Chief Complaint: stroke like symptoms History of Present Illness Katie Botello is a 40 year old female with history of pituitary microadenoma that secretes prolactin. 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 She states that my face is shadowed on the left side looking with her right eye. With the left eye vision is fine. She has numbness and tingling over her right face. Earlier she had difficulty with slurred speech and right eyebrow would not raise she was sent to the emergency department under code stroke and evaluated by Dr. Cadet. Symptoms were more consistent with migraine patient has had occasional headaches in the past but never a migraine and not has not taken any migraine rescue medications. Patient was treated with Depakote 500 mg IV with some improvement and the right eyebrow improved and the right arm and leg numbness improved. She still has numbness at her right cheek and forehead at the time of my evaluation which was approximately 7:35 PM Review of Systems 2 Narrative: General No fevers chills Cardiovascular no chest pain or palpitations respiratory no shortness of breath cough wheezing GI no nausea vomiting diarrhea Neuro no motor weakness Medications/Allergies Home Medications ?Medication ?Instructions ?Recorded ?Confirmed ?Last Taken ?Type cabergoline 0.5 mg tablet 0.25 mg (1/2 x 0.5 mg) PO .T anyi a 12/15/23 08/08/24 Unknown Rx week #26 tabs doxycycline hyclate 100 mg tablet 100 mg PO BID #14 ta bs 08/08/24 08/08/24 Unknown Rx promethazine-DM 6.25 mg-15 mg/5 mL 5 ml PO Q6H PRN cou gh #118 mL 08/08/24 08/08/24 Unknown Rx oral syrup fluoxetine 20 mg tablet 20 mg PO DAILY #90 tabs 04/26 Unknown Rx Allergies Allergy/AdvReac Type Severity Reaction Status Date / Time No Known Allergies Allergy Verified 06/11/25 15:30 PFSH Acute 2 PFSH: Medical History (Updated 06/11/25 @ 21:03 by Varghese Elder MD) Nicotine dependence due to vaping tobacco product Alcohol use disorder Tobacco use disorder Prolactinoma 09/09/20: Presented with amenorrhea. Prolactin 92 with TSH 0.90 12/16/20: Pituitary MRI showed 1.1 cm pituitary mass (c/w microadenoma). 12/18/20: started cabergoline Bronchitis Pharyngitis Anxiety Sleep apnea Uses C-pap Depression Idiopathic polyneuropathy Surgical History No pertinent past surgical history Family History Grandfather Diabetes paternal Father Hypertension Social History (Updated 06/11/25 @ 20:59 by Varghese Elder MD) Smoking and tobacco/nicotine status: current every day tobacco/nicotine user e- cigarettes E-Cigarette Details: with nicotine E-cig/vape details: Estimated 2 packs/day equivalent of cigarettes or 40 mg and nicotine daily. Alcohol intake: current Alcohol intake frequency: 3 or more drinks per day Substance/Drug Use: never Additional social history: Patient wants full code as discussed today with Varghese Elder MD on 06/11/2025 in the presence of her Niranjan and her friend Dorene Adopted: No Caregiver/support person: No Lives independently: No Household members: spouse Marital status: service: No Current occupational status: employed Sexually active: Yes Do you think of yourself as: Straight/Heterosexual Current gender identity: Female Female Reproductive History: Para: 2 Vitals/I&O/Wt Last Vital Signs Temp 97.9 F 06/11/25 15:25 Pulse 76 06/11/25 20:13 Resp 15 06/11/25 15:30 BP 130/86 06/11/25 20:13 Pulse Ox 96 06/11/25 20:13 O2 Del Method Room Air 06/11/25 20:21 06/11/25 06/11/25 06/11/25 06:59 14:59 22:59 Intake Total 73.333 / 73.333 Balance 73.333 / 73.333 Weight last 48 hrs Weight 94 kg Weight 95.254 kg Physical Exam 2 Narrative: General well-developed well-nourished female in no acute cardiopulmonary stress CV regular rate and rhythm Lungs clear to auscultation bilaterally Back no flank pain Calves no tenderness or pretibial edema Abdomen positive bowel tones soft nontender Neuro face is symmetric pupils are equally round and reactive. She has decreased sensation over the right face compared to the left over the brow cheek and jaw but it does not cross midline. Speech is minimal occasional slurred word otherwise clear carotid upstrokes normal Motor 5/5 handgrips biceps triceps ankle flexion and extension. Gross sensation over the arms and legs is intact and equal bilaterally Data 06/11/25 15:39 06/11/25 15:39 A&P Assessment and plan 1. Migraine aura without headache (migraine equivalents): This is not consistent with stroke and did respond to Depakote. I discussed with Dr. Cadet possibility of giving sumatriptan and Toradol but since the patient had improvement of her symptoms with Depakote we elected to give a second dose of Depakote. Patient can be discharged home once her symptoms have improved to further 20 to 30%. 2. Hypertension: Blood pressure quite high with response to vasospasm with migraine. Now much improved 3. Nicotine dependence due to vaping tobacco product: Patient is encouraged to use nicotine patch given her headache. Will make that available I recommended that she wean her self off of nicotine completely as there is high risk of vascular disease or further nicotine related migraines 4. Pituitary adenoma: Prolactin was 93. This is decreased from the 186 that she had tested few years ago but she needs to be back on her medication and Dr. Cadet states that she is willing to prescribe the medication outpatient with follow-up in the clinic PDMP PDMP Reviewed: Not Reviewed Attestations 2 Medical Necessity Statement*: Patient is admitted the hospital for observation regarding migraines and elevated blood pressure. Anticipate that she will require less than 2 midnights in the hospital Coding Level of Care Code 63127 Diagnoses Migraine aura without headache (migraine equivalents) G43.109 Hypertension I10 Nicotine dependence due to vaping tobacco product F17.290 Pituitary adenoma D35.2 Time Spent (min) 70
--- NOTE | 2025-06-11 23:34 | PM.DCS ---
Discharge Providers Date of Admission: 06/11/25 18:44 Date of Discharge: June 11, 2025 Attending Provider at Admission: Varghese Elder MD Attending Provider at Discharge: Varghese Elder MD Diagnoses at Discharge Discharge Diagnosis 1. Migraine aura without headache (migraine equivalents): Details from hospital stay: pt rapidly improved after Depakote 500mg IV x 2 doses and was discharged 2. Hypertension: Details from hospital stay: improved 3. Nicotine dependence due to vaping tobacco product: Details from hospital stay: counseled regarding nicotine cessation 4. Pituitary adenoma: Details from hospital stay: follow up with Dr. Cadet to resume treatment with cabergoline Reason for Visit Reason for Visit: stroke like symptoms Discharge Data Studies Completed and Pending Completed Studies During Hospitalization Category Date Time Status CT head thrombolytic 11588 Stat Cat Scan 06/11/25 15:25 Completed MR angio head wo con [id number] Stat MRI 06/11/25 15:44 Completed MR head wo con* [id number] Stat MRI 06/11/25 15:44 Completed Radiology Impressions Head CT 06/11/25 15:25 IMPRESSION: No acute intracranial abnormality. ASSESSMENT: ASPECTS (Ambika Stroke Program Early CT Score) is 10. ADDENDUM: 06/11/25 1544 THIS REPORT CONTAINS FINDINGS THAT MAY BE CRITICAL TO PATIENT CARE. The findings were verbally communicated via telephone conference with KY FLORES at 3:42 PM CDT on 06/11/2025. The findings were acknowledged and understood. Head MRI 06/11/25 15:44 IMPRESSION: No acute intracranial abnormality. No restricted diffusion to indicate ischemic infarct. Head MRA 06/11/25 15:44 IMPRESSION: No stenosis or occlusion. Laboratory Results WBC 10.57 10^3/uL (3.29-11.43) 06/11/25 15:39 RBC 4.69 10^6/uL (3.85-5.65) 06/11/25 15:39 Hgb 13.40 g/dL (11.27-16.99) 06/11/25 15:39 Hct 41.6 % (36-47) 06/11/25 15:39 MCV 88.7 fl (85-98) 06/11/25 15:39 MCH 28.6 pg (27-33) 06/11/25 15:39 MCHC 32.2 g/dL (30-55) 06/11/25 15:39 RDW 13.5 % (12.1-15.1) 06/11/25 15:39 Plt Count 321 10^3/cmm (157-399) 06/11/25 15:39 MPV 9.9 fL (7.4-10.4) 06/11/25 15:39 Neut % (Auto) 55.7 % 06/11/25 15:39 Lymph % (Auto) 34.5 % 06/11/25 15:39 Victoria % (Auto) 6.3 % 06/11/25 15:39 Eos % (Auto) 2.6 % 06/11/25 15:39 Baso % (Auto) 0.5 % 06/11/25 15:39 Neut # (Auto) 5.88 10^3/uL (1.8-7.7) 06/11/25 15:39 Lymph # (Auto) 3.7 10^3/uL (0.8-4.8) 06/11/25 15:39 Victoria # (Auto) 0.7 10^3/uL (0.2-0.9) 06/11/25 15:39 Eos # (Auto) 0.3 10^3/uL (0.0-0.8) 06/11/25 15:39 Baso # (Auto) 0.1 10^3/uL (0.0-0.1) 06/11/25 15:39 Nucleated RBC % (auto) 0 % 06/11/25 15:39 Nucleated RBCs # 0.0 /100WBC 06/11/25 15:39 PT 12.90 SECONDS (12.1-14.9) 06/11/25 15:39 INR 0.91 (0.8-1.2) 06/11/25 15:39 APTT 28.5 SECONDS (23.9-36.7) 06/11/25 15:39 Sodium 135 mmol/L (136-145) L 06/11/25 15:39 Potassium 3.5 mmol/L (3.5-5.1) 06/11/25 15:39 Chloride 99 mmol/L (98-107) 06/11/25 15:39 Carbon Dioxide 25 mmol/L (22-29) 06/11/25 15:39 Anion Gap 14.5 (5-19) 06/11/25 15:39 BUN 11 mg/dL (6-20) 06/11/25 15:39 Creatinine 0.8 mg/dL (0.5-0.9) 06/11/25 15:39 GFR Calculation 79.9 mL/min (90-130) L 06/11/25 15:39 Glucose 93 mg/dL (65-115) 06/11/25 15:39 POC Glucose 90 mg/dL (70-110) 06/11/25 15:38 Calculated Osmolality 279 mOsm/kg (285-295) L 06/11/25 15:39 Calcium 9.1 mg/dL (8.5-10.5) 06/11/25 15:39 Total Bilirubin 0.9 mg/dL (0.15-1.2) 06/11/25 15:39 AST 12 U/L (0-32) 06/11/25 15:39 ALT 10 U/L (0-33) 06/11/25 15:39 Alkaline Phosphatase 93 U/L (35-105) 06/11/25 15:39 Total Protein 7.8 g/dL (6.6-8.7) 06/11/25 15:39 Albumin 4.3 g/dL (3.5-5.2) 06/11/25 15:39 Globulin 3.5 g/dL (1.3-4.6) 06/11/25 15:39 Prolactin 92.16 ng/mL (4.8-23.3) H 06/11/25 15:39 Vitals Last Vital Signs Temp 98.5 F 06/11/25 20:45 Pulse 74 06/11/25 22:03 Resp 15 06/11/25 15:30 BP 146/97 06/11/25 22:03 Pulse Ox 94 06/11/25 22:03 O2 Del Method Room Air 06/11/25 21:45 Discharge Plan Discharge Patient Disposition: Home Condition: Stable Prescriptions: New cabergoline 0.5 mg Tablet 0.25 mg PO .Twice a week Qty: 30 0RF Continued fluoxetine 20 mg tablet 20 mg PO DAILY Qty: 90 0RF Discontinued cabergoline 0.5 mg tablet 0.25 mg PO .Twice a week Qty: 26 2RF doxycycline hyclate 100 mg tablet 100 mg PO BID Qty: 14 0RF promethazine-DM 6.25-15 mg/5 mL syrup 5 ml PO Q6H PRN (Reason: cough) Qty: 118 0RF Discharge Order = DC NOW: Discharge Order (Routine); Ordered 06/11/25 Ordered By: Varghese Elder Referrals: Jacqueline Cadet MD [Physician, Neurology] - 1 week Discharge Diet: Regular Discharge Activity: May return to work/school without restrictions Patient Instructions: Opioid Safety, Patient Portal & Nikki Instructions Activity Restrictions/Additional Instructions: Wean off nicotine as discussed Resume treatment for Pituitary adenoma return if worsened neurological symptoms or motor dysfunction. Discharge Attestations Time Spent in Discharge Care*: less than 30 min Time Spent in Smoking Cessation: more than 10 minutes Quality Metrics Clinical Quality Measures [ No reported AMI, CVA or VTE this stay] Coding Level of Care Code 85328 Diagnoses Migraine aura without headache (migraine equivalents) G43.109 Hypertension I10 Nicotine dependence due to vaping tobacco product F17.290 Pituitary adenoma D35.2
== END 2025-06-11 22:07 | disposition home or self-care (01) ==
LOC: ER 18:12 → ER IP 18:44 → ICU 20:09
PROVIDERS: Admitting Provider Internal Medicine; Emergency Provider Emergency Medicine; Visit Provider Internal Medicine
DX: G43.109 Migraine with aura, not intractable, without status migrainosus (principal); I10 Essential (primary) hypertension; D35.2 Benign neoplasm of pituitary gland; F17.290 Nicotine dependence, other tobacco product, uncomplicated; E22.1 Hyperprolactinemia; Z86.018 Personal history of other benign neoplasm; G47.30 Sleep apnea, unspecified; Z99.89 Dependence on other enabling machines and devices; F41.8 Other specified anxiety disorders
CPT/HCPCS: 36415; 36416; 70450; 70544; 70551; 80053; 82962; 84146; 85025; 85610; 85730; 93005; 96365; 96366; 96375; 99285; G0378; J2405; J3490

== ENCOUNTER 2025-06-19 16:26 | Outpatient (CLI) | payer OTHER, SELFPAY ==
[2025-06-19 20:43] LABS: HIV 1 & 2 Antigen Non-Reactive (Non-Reactiv)
[2025-06-20 03:53] LABS: Hepatitis B Surface Antigen Non-Reactive (Nonreactive)
== END 2025-06-19 16:27 | disposition home or self-care (01) ==
PROVIDERS: PCP Nurse Practitioner Family; Visit Provider Family Medicine
DX: Z01.89 Encounter for other specified special examinations (principal)
CPT/HCPCS: 86706; 86803; 87340; 87806

== ENCOUNTER 2025-08-07 07:47 | Outpatient (CLI) | payer OTHER, SELFPAY ==
--- NOTE | 2025-08-07 07:45 | USCV_ITS ---
Katie Botello Age: 40 Gender: F : 1985 Exam Date: 08/07/2025 08:02 Ordering Phys: Myron Castillo MACHINE FOLDER MSN AGACNP-BC Technologist: Exam Location: [facility] – [place] Indication: tia BP: 130 / 70 HR: 56 Rhythm: Sinus Technical Quality: Adequate MEASUREMENTS (Male / Female) Normal Values 2D ECHO LV Diastolic Diameter PLAX 4.6 cm 4.2 - 5.9 / 3.9 - 5.3 cm IVS Diastolic Thickness 1.1 cm 0.6 - 1.0 / 0.6 - 0.9 cm IVS Systolic Thickness 1.6 cm LVPW Diastolic Thickness 1.5 cm 0.6 - 1.0 / 0.6 - 0.9 cm LVPW Systolic Thickness 2.4 cm LVOT Diameter 2.0 cm LV Ejection Fraction 2D Teich 62.3 % LV Ejection Fraction MOD 4C 53.9 % LV Ejection Fraction MOD 2C 68.9 % LV Ejection Fraction 2C AL 69.8 % LA Diameter 3.1 cm RA Systolic Volume 4C AL 34.4 ml RA Systolic Volume 4C MOD 33.4 ml Aorta at Sinotubular Diameter 3.1 cm IVC Diameter 2.0 cm M-MODE LA Ao Ratio MM 1.1 AV Cusp Separation MM 3.0 cm DOPPLER AV Peak Velocity 143.0 cm/s LVOT Peak Velocity 102.0 cm/s AV Area Cont Eq vti 2.4 cm squared AV Area Cont Eq pk 2.2 cm squared MV Area PHT 3.5 cm squared Mitral E to A Ratio 1.3 TV Peak Velocity 197.5 cm/s TR Peak Velocity 252.0 cm/s TR Peak Gradient 25.4 mmHg PV Peak Velocity 98.0 cm/s FINDINGS Left Ventricle Normal left ventricular size and systolic function, EF 68%. No regional wall motion abnormalities. Mild left ventricular hypertrophy. No regional wall motion abnormalities. Right Ventricle Normal right ventricular size and systolic function. Right Atrium Saline contrast injection revealed greater than 20 bubbles on the left side within 4 heartbeats suggesting a large PFO Left Atrium Mildly increased left atrial size. Mildly increased left atrial volume 33 ml/m squared. IA Septum Appears to have large PFO, based on the number of bubbles on the left side Mitral Valve No gross abnormalities noted Aortic Valve No gross abnormalities noted. Appears to be tricuspid Tricuspid Valve No gross abnormalities noted Pulmonic Valve Pulmonic valve not well visualized. Pericardium No pericardial effusion. Aorta Normal aortic annulus size. IVC Normal inferior vena cava. CONCLUSIONS Features suggestive of a large PFO causing hndol-dh-uisd shunt, based on the saline contrast injection Normal left ventricular size and systolic function, EF 68%. No regional wall motion abnormalities. Mild left ventricular hypertrophy. No regional wall motion abnormalities. Mildly increased left atrial size. Mildly increased left atrial volume 33 ml/m squared. There is no pericardial effusion. There are no intracardiac masses. No similar previous studies are available for comparison Dr Adrián Beach MD FAC (Electronically Signed) Final Date: 08 August 2025 10:03 S
== END 2025-08-07 07:48 | disposition home or self-care (01) ==
LOC: RAD 07:48
PROVIDERS: PCP Nurse Practitioner Family; Visit Provider Nurse Practitioner
DX: G45.9 Transient cerebral ischemic attack, unspecified (principal); I51.7 Cardiomegaly
CPT/HCPCS: C8929

== ENCOUNTER 2025-08-07 10:29 | Outpatient (CLI) | payer OTHER, SELFPAY | END 2025-08-07 10:30 | disposition home or self-care (01) | PROVIDERS: PCP Nurse Practitioner Family; Visit Provider Nurse Practitioner | DX: G43.909 Migraine, unspecified, not intractable, without status migrainosus (principal); R29.90 Unspecified symptoms and signs involving the nervous system | CPT/HCPCS: 36415; 85651; 86140 ==

== ENCOUNTER → 2025-09-05 13:30 | Outpatient (BNVA) | payer OTHER, SELFPAY | PROVIDERS: Family Provider Nurse Practitioner Family; PCP Nurse Practitioner Family; Visit Provider Internal Medicine | DX: R07.9 Chest pain, unspecified (principal); R94.31 Abnormal electrocardiogram [ECG] [EKG] | CPT/HCPCS: 93005 ==

== ENCOUNTER 2025-09-11 14:54 | Outpatient (CLI) | payer OTHER, SELFPAY ==
--- NOTE | 2025-09-11 15:15 | USCV_ITS ---
Katie Botello Age: 40 Gender: F : 1985 Exam Date: 09/11/2025 15:08 Ordering Phys: Osmel Suazo M.D ([email or web address]) Technologist: MELANIA Exam Location: [facility] [place] Indication: pain HISTORY: Lower extremity pain. PROCEDURES: Venous duplex imaging was performed in bilateral lower extremities. The following venous structures were evaluated: common femoral vein, profunda vein, proximal portion of the greater saphenous vein, superficial femoral vein, and the popliteal vein. In addition, the posterior tibial and peroneal trunk were evaluated. FINDINGS: Normal 2-D Doppler and augmentation and compressibility throughout the lower extremity venous structures. Additional imaging through the proximal calf veins also reveals no thrombus. Limited evaluation of the greater saphenous vein is patent with no thrombus. CONCLUSIONS No DVT bilateral lower extremities. Dr. Shauna Poole DO (Electronically Signed) Final Date: 11 September 2025 15:59 S
== END 2025-09-11 14:55 | disposition home or self-care (01) ==
LOC: RAD 14:55
PROVIDERS: Family Provider Nurse Practitioner Family; PCP Nurse Practitioner Family; Visit Provider Internal Medicine
DX: M79.604 Pain in right leg (principal); M79.605 Pain in left leg
CPT/HCPCS: 93970

== ENCOUNTER 2025-09-12 11:02 | Day surgery (SDC) | payer OTHER, SELFPAY ==
[2025-09-12 11:29] VITALS: BP 126/71; PULSE 69; RESP 18; TEMP 36.9; O2SAT 99; BMI 37.2
--- NOTE | 2025-09-12 12:05 | USCV_ITS ---
Katie Botello Age: 40 Gender: F : 1985 Exam Date: 09/12/2025 12:46 Ordering Phys: Adrián Beach MD ([email or web address]) Technologist: [place] [facility] [place]: pfo BP: / HR: Rhythm: Sinus Technical Quality: MEASUREMENTS (Male / Female) Normal Values Medications IV propofol administered by anesthesia service. For the details, please refer to the anesthesia report Complications None Proc. Components The patient was brought to the VÍCTOR examination room in a fasting state after obtaining an informed consent. The VÍCTOR probe was passed into the posterior pharynx , mid-esophagus and distal esophagus. Venous pictures were taken at the standard views FINDINGS Left Ventricle Appears to be of normal size ejection fraction Right Ventricle Appears to be of normal size. Right Atrium Normal right atrial size. Left Atrium Normal left atrial size. IA Septum Patent foramen ovale measuring 0.54 cm in diameter, 0.86 cm away from the superior vena cava was noted. More than 30 bubbles were found to be crossing the interatrial septum to the left side LA Appendage Normal size and contractility Mitral Valve No gross abnormalities noted Aortic Valve Tricuspid valve with no gross abnormalities Tricuspid Valve No gross abnormalities noted Pulmonic Valve Structurally normal pulmonic valve. Pericardium No pericardial effusion. Aorta Normal aortic annulus size. CONCLUSIONS Features suggesting large PFO with qqysy-gb-taox shunt(based on the number of bubbles crossing the septum). The diameter of the shunt was measured to be 0.54 cm. It appeared to be 0.86 cm from the superior vena cava No significant valvular lesions were noted Normal left atrial appendage and contractility No intracardiac masses Aortic root and the ascending aorta appeared to be of normal size Dr Adrián Beach MD [facility] (Electronically Signed) Final Date: 12 September 2025 18:44 S
--- NOTE | 2025-09-12 12:07 | W.PM.OPSUD ---
Surgery/Procedure H&P Update DATE OF PROCEDURE: September 12, 2025 DATE H&P PERFORMED: 09/05/25 H&P UPDATE INFORMATION: I have reviewed H&P completed within last 30 days, I have examined patient prior to procedure and No changes to prior documentation PREOP DIAGNOSIS: PFO PRIMARY INDICATION FOR PROCEDURE: Large patent foramen ovale by the transthoracic echocardiogram PLANNED PROCEDURE: Operation Date: 09/12/25 12:30 Proposed Procedures p VÍCTOR(Not Applicable) - Adrián Beach MD
[2025-09-12 12:35] LABS: OR HCG Qualitative Urine Negative (Negative)
--- NOTE | 2025-09-12 12:35 | P.ANESASSM_ITS ---
Pre-Anesthetic Assessment Height/Weight: Height 5 ft 3 in Weight 210 lb Temp Pulse Resp BP Pulse Ox O2 Del Method 98.5 F 69 18 126/71 99 Room Air 09/12/25 11:29 09/12/25 11:29 09/12/25 11:29 09/12/25 11:29 09/12/25 11:29 09/12/25 11:29 Preop Diagnosis: PFO Operation Date: 09/12/25 12:30 Proposed Procedures p VÍCTOR(Not Applicable) - Adrián Beach MD Was Beta Zoya taken within 24 hours: N/A Was Clonidine taken within 24 hours: N/A Last intake: Intake Last Liquid Date 09/11/25 Last Liquid Time 23:00 Last Solid Date 09/11/25 Last Solid Time 22:30 Social No alcohol and No tobacco Exam alert, oriented x 3, clear to auscultation bilaterally and regular rate & rhythm Airway Submandibular: within normal limits Cervical ROM: within normal limits Mallampati: Class I Dentition: full Anesthetic Plan ASA status: 3 Anesthesia: MAC Other: No prior issues with anesthesia NPO since yesterday evening Patient had a TIA or possible focal migraine earlier this year. Follow-up echo showing PFO Idiopathic polyneuropathy Patient did have a small cold over the weekend but denies any fevers METs greater than 4 Plan for MAC anesthesia Medications/Allergies Home Medications ?Medication ?Instructions ?Recorded ?Confirmed ?Last Taken ?Type cabergoline 0.5 mg tablet 0.25 mg (1/2 x 0.5 mg) PO .T anyi a 07/16/25 09/12/25 09/06/25 Rx week #30 tabs trazodone 50 mg tablet 50 mg PO BEDTIME #30 tabs 09/12/25 2 Weeks Ago Rx ~08/29/25 aspirin 81 mg tablet,delayed 81 mg PO DAILY 09/11/25 1 11/12/24 09/10/25 History release Allergies Allergy/AdvReac Type Severity Reaction Status Date / Time No Known Allergies Allergy Verified 08/14/25 14:29 [facility] Anesthesia Medical History Nicotine dependence due to vaping tobacco product Alcohol use disorder Tobacco use disorder Prolactinoma 09/09/20: Presented with amenorrhea. Prolactin 92 with TSH 0.90 12/16/20: Pituitary MRI showed 1.1 cm pituitary mass (c/w microadenoma). 12/18/20: started cabergoline Bronchitis Pharyngitis Anxiety Sleep apnea Uses C-pap Depression Idiopathic polyneuropathy Surgical History No pertinent past surgical history Family History Grandfather Diabetes paternal Father Hypertension Social History Smoking and tobacco/nicotine status: current every day tobacco/nicotine user (vape) e-cigarettes E-Cigarette Details: with nicotine E-cig/vape details: Estimated 2 packs/day equivalent of cigarettes or 40 mg and nicotine daily. Alcohol intake: current Alcohol intake frequency: 3 or more drinks per day Substance/Drug Use: never Additional social history: Patient wants full code as discussed today with Varghese Elder MD on 06/11/2025 in the presence of her Niranjan and her friend Dorene Adopted: No Caregiver/support person: No Lives independently: No Household members: spouse Marital status: service: No Current occupational status: employed Sexually active: Yes Do you think of yourself as: Straight/Heterosexual Current gender identity: Female Female Reproductive History Para: 2 Data Anesthesia Cardiac Studies: Echocardiogram 08/07/25 Cardiac Event Monitor 08/07/25
[2025-09-12 13:14] VITALS: BP 113/75; PULSE 81; RESP 16; TEMP 36.3; O2SAT 95
[2025-09-12 13:43] VITALS: BP 117/80; PULSE 70; RESP 17; O2SAT 97
--- NOTE | 2025-09-12 13:50 | ANE.PACU2 ---
Inpatient post-anesthesia follow up: Airway intact: Yes Vital signs: Temperature 97.3 F Pulse Rate 70 Respiratory Rate 17 Blood Pressure 117/80 Pulse Oximetry 97 Oxygen Delivery Me thod Room Air Oxygen Flow Rate Fraction of Inspir ed Oxygen Hydration adequate: Yes Nausea and vomiting: No Pain level: 1 Mental status: Baseline
== END 2025-09-12 13:50 | disposition home or self-care (01) ==
PROVIDERS: Internal Medicine Cardiovascular Disease; Student in an Organized Health Care Education/Training Program; PCP Nurse Practitioner Family; Visit Provider Internal Medicine
PROC: (CPT 93312; principal; 2025-09-12 12:30)
DX: Q21.12 Patent foramen ovale (principal)
CPT/HCPCS: 81025; 93312; 93320; 93325; J2704; J7030